=== PATIENT | male | born 1935 | race Hispanic/Latino ===

== ENCOUNTER 2016-05-27 08:37 | Outpatient (CLI) | payer MEDICARE, OTHER ==
[2016-05-27 09:23] LABS: Blood Urea Nitrogen 26 mg/dL (9-20)
[2016-05-27] MEDS ORDERED: NACL ONE (11:46)
--- NOTE | 2016-05-27 15:53 | Cat Scan Report ---
CT ABDOMEN AND PELVIS WITH CONTRAST INDICATION: Elevated alkaline phosphatase. COMPARISON: 02/05/[address] images. FINDINGS: Abdomen and pelvis CT performed following oral contrast and intravenous administration of 100 cc of Omnipaque 300. LUNG BASES: Small noncalcified peripheral bilateral lower lobe nodules again noted, approximately 8 mm on the right, axial series 2, image 29 and approximately 6 mm on the left, axial image 56. At least 2 other noncalcified left lower lobe nodules posteriorly again seen as on axial image 23, series 2 that however also now demonstrates a new, 1.2 cm spiculated density peripherally. Stable borderline cardiomegaly with possible coronary calcifications or stents and streak artifact from dual-chamber pacemaker leads. No effusions. Largest noncalcified right middle lobe nodule is 6 mm, axial image 26, series 2, also stable. Subtle lymphoid prominence of the basilio may also be incompletely imaged. Nonspecific distal esophageal wall thickening, not excluded for gastroesophageal reflux and/or hiatal hernia, amongst others. ABDOMEN: Approximately 7 mm indeterminate right hepatic hypodensity superiorly again noted, axial image 58, series 2. Otherwise unremarkable liver, spleen, gallbladder, pancreas, adrenals, nonaneurysmal abdominal aorta with atherosclerotic aortic calcifications and IVC within normal limits. Mild infrarenal aortic ectasia incidentally seen on axial image 20, series 2. Non-hydronephrotic kidneys with mild bilateral perinephric stranding and numerous bilateral renal cortical hypodensities/cysts, some subcentimeter while the largest exophytic off the right lower renal pole is approximately 8.1 x 7.3 cm on axial image 210 and while the largest partly exophytic off the left kidney inferiorly is approximately 4 cm on axial image 190. No ascites or size significant adenopathy. Opacified GI tract nonobstructive and within normal limits. Mild colonic stool. Few descending colon and proximal sigmoid diverticuli. Right lower quadrant abdominal wall laxity/mild herniation laterally with unremarkable opacified small bowel extending into it incidentally noted as on axial image 239, series 2, amongst others. PELVIS: Numerous brachytherapy seeds. Few small pelvic phleboliths. Grossly unremarkable seminal vesicles, urinary bladder and the rectosigmoid without free fluid or significant adenopathy. Possible right orchiectomy. An approximately 2.4 cm fat-containing left inguinal hernia. Demineralized bones with multilevel degenerative changes, including spurring with most advanced disease from T10-L4, including disc narrowing, vacuum phenomenon and vertebral body sclerosis at few levels as also moderate, approximately 50% T12 compression fracture, including superior and inferior endplates Schmorl's nodes. CONCLUSION: 1. Multiple noncalcified lower lung nodules again noted, though with a new small left lower lobe spiculated density, latter worrisome for neoplasm, until proven otherwise. 2. No acute abdomen or pelvic CT abnormality with various other incidental findings, including bilateral renal cysts, diverticulosis, brachytherapy seeds, multilevel spinal degenerative changes including T12 compression deformity and bilateral inguinal canal appearance, as detailed above. Please correlate. Thank you for the opportunity to participate in this patient's care.
== END 2016-05-27 08:38 | disposition home or self-care (01) ==
LOC: CT 08:37
PROVIDERS: ATTEND Internal Medicine Gastroenterology
DX: N28.1 Cyst of kidney, acquired (principal); I70.0 Atherosclerosis of aorta; K40.90 Unilateral inguinal hernia, without obstruction or gangrene, not specified as recurrent; M47.894 Other spondylosis, thoracic region; K57.30 Diverticulosis of large intestine without perforation or abscess without bleeding; I77.819 Aortic ectasia, unspecified site; R91.8 Other nonspecific abnormal finding of lung field; I87.8 Other specified disorders of veins
CPT/HCPCS: 36415; 74177; 82565; 84520; Q9967

== ENCOUNTER 2019-07-08 01:31 | Emergency (ER) | payer MEDICARE, OTHER ==
[2019-07-08 02:04] LABS: Basophils % (Auto) 0.6 % (0.0-1.8); Eosinophils # (Auto) 0.2 K/mm3 (0.0-0.4); Eosinophils % (Auto) 2.3 % (0.0-4.3); Hematocrit 37.7 % (35.5-45.6); Hemoglobin 12.4 gm/dl (11.8-15.2); Lymphocytes # (Auto) 0.6 K/mm3 (1.2-5.4); Lymphocytes % (Auto) 8.7 % (13.4-35.0); Mean Corpuscular HGB Conc 33 % (32-34); Mean Corpuscular Volume 87 fl (84-94); Monocytes # (Auto) 0.5 K/mm3 (0.0-0.8); Monocytes % (Auto) 6.8 % (0.0-7.3); Platelet Count 140 K/mm3 (140-440); Red Blood Count 4.33 M/mm3 (3.65-5.03); Red Cell Distribution Width 16.7 % (13.2-15.2)
--- NOTE | 2019-07-08 02:19 | Emergency Department Report ---
ED Male HPI - General Chief complaint: Urogenital-Male Stated complaint: BLOOD IN URINE Time Seen by Provider: 07/08/19 02:01 Source: patient Mode of arrival: Ambulatory Limitations: No Limitations - History of Present Illness Initial comments: Patient is an 84-year-old male that presents emergency room with complaints of blood in his urine. Patient states is able to pee but is having gross hematuria. Patient states that hematuria is asymptomatic. Patient denies fever and chills. Patient denies burning. Patient denies abdominal pain. Patient states he has a past medical history of prostate cancer for which he has seed implants. Patient states he denies any problems with his prostate recently. MD Complaint: other -: Sudden Severity scale (0 -10): 0 Consistency: intermittent Improves with: none Worsens with: none blood in urine. denies: discharge, swelling, mass, rash, urinary retention, dysuria, fever, nausea/vomiting, incontinence - Related Data Sexually active: No Home Medications Medication Instructions Recorded Confirmed Last Taken Atorvastatin (Nf) [Lipitor] 10 mg PO QHS 05/18/14 02/18/16 02/18/16 10 mg Furosemide [Lasix] 20 mg PO DAILY 05/18/14 02/18/16 02/18/16 20 mg Losartan [Cozaar] 100 mg PO DAILY 05/18/14 02/18/16 02/18/16 100 mg Metoprolol [Lopressor TAB] 100 mg PO BID 05/18/14 02/18/16 02/18/16 100 mg Nitroglycerin [Nitrostat] 0.4 mg SL UNK PRN 05/18/14 02/18/16 Unknown Oxybutynin Chloride [Oxybutynin 5 mg PO DAILY 05/18/14 02/18/16 02/18/16 Chloride ER] 5 mg Potassium Chloride [Klor-Con M10] 10 meq PO DAILY 05/18/14 02/18/16 02/18/16 10 meq Tamsulosin [Flomax] 0.4 mg PO DAILY 05/18/14 02/18/16 02/18/16 allopurinoL [Zyloprim] 100 mg PO DAILY 05/18/14 02/18/16 02/18/16 100 mg Eloquis 1 tab PO BID 02/18/16 02/18/16 Previous Rx's Medication Instructions Recorded Last Taken Type Digoxin [Digox] 125 mcg PO DAILY #30 tablet 05/04/14 02/18/16 Rx 125 mcg Nitrofurantoin [place]/M-Cryst 100 mg PO Q12HR #14 capsule 02/18/16 Unknown Rx [Macrobid CAP] Sulfamethoxazole/Trimethoprim 1 each PO BID 10 Days #20 tablet 07/08/19 Unknown Rx [Bactrim DS TAB] Allergies Allergy/AdvReac Type Severity Reaction Status Date / Time dabigatran etexilate mesylate Allergy Hives Verified 05/04/14 08:58 [From Pradaxa] ED Review of Systems ROS: Stated complaint: BLOOD IN URINE Other details as noted in HPI Constitutional: denies: chills, fever Eyes: denies: eye pain, eye discharge, vision change ENT: denies: ear pain, throat pain Respiratory: denies: cough, shortness of breath, wheezing Cardiovascular: denies: chest pain, palpitations Endocrine: no symptoms reported Gastrointestinal: denies: abdominal pain, nausea, diarrhea Genitourinary: hematuria. denies: urgency, dysuria Musculoskeletal: denies: back pain, joint swelling, arthralgia Skin: denies: rash, lesions Neurological: denies: headache, weakness, paresthesias Psychiatric: denies: anxiety, depression Hematological/Lymphatic: denies: easy bleeding, easy bruising ED Past Medical Hx - Past Medical History Previous Medical History?: Yes Hx Hypertension: Yes Hx Congestive Heart Failure: Yes (ER visit 05/04/14 with CHF) Hx Diabetes: No Hx Arthritis: No Additional medical history: AGENT ORANGE. ATRIAL FIB - Surgical History Past Surgical History?: Yes Hx Pacemaker: Yes Hx Internal Defibrillator: Yes Additional Surgical History: TONSILLECTOMY - Family History Family history: no significant - Social History Smoking Status: Former Smoker Substance Use Type: Alcohol - Medications Home Medications: Home Medications Medication Instructions Recorded Confirmed Last Taken Type Digoxin [Digox] 125 mcg PO DAILY #30 tablet 05/04/14 02/18/16 02/18/16 Rx 125 mcg Atorvastatin (Nf) [Lipitor] 10 mg PO QHS 05/18/14 02/18/16 02/18/16 History 10 mg Furosemide [Lasix] 20 mg PO DAILY 05/18/14 02/18/16 02/18/16 History 20 mg Losartan [Cozaar] 100 mg PO DAILY 05/18/14 02/18/16 02/18/16 History 100 mg Metoprolol [Lopressor TAB] 100 mg PO BID 05/18/14 02/18/16 02/18/16 History 100 mg Nitroglycerin [Nitrostat] 0.4 mg SL UNK PRN 05/18/14 02/18/16 Unknown History Oxybutynin Chloride [Oxybutynin 5 mg PO DAILY 05/18/14 02/18/16 02/18/16 History Chloride ER] 5 mg Potassium Chloride [Klor-Con M10] 10 meq PO DAILY 05/18/14 02/18/16 02/18/16 History 10 meq Tamsulosin [Flomax] 0.4 mg PO DAILY 05/18/14 02/18/16 02/18/16 History allopurinoL [Zyloprim] 100 mg PO DAILY 05/18/14 02/18/16 02/18/16 History 100 mg Eloquis 1 tab PO BID 02/18/16 02/18/16 History Nitrofurantoin [place]/M-Cryst 100 mg PO Q12HR #14 capsule 02/18/16 Unknown Rx [Macrobid CAP] Sulfamethoxazole/Trimethoprim 1 each PO BID 10 Days #20 tablet 07/08/19 Unknown Rx [Bactrim DS TAB] ED Physical Exam - General Limitations: No Limitations General appearance: alert, in no apparent distress - Head Head exam: Present: atraumatic, normocephalic - Eye Eye exam: Present: normal appearance - ENT ENT exam: Present: mucous membranes moist - Neck Neck exam: Present: normal inspection - Respiratory Respiratory exam: Present: normal lung sounds bilaterally. Absent: respiratory distress, wheezes, rales - Cardiovascular Cardiovascular Exam: Present: regular rate, normal rhythm. Absent: systolic murmur, diastolic murmur, rubs, gallop - GI/Abdominal GI/Abdominal exam: Present: soft, normal bowel sounds. Absent: distended, tenderness, guarding - Rectal Rectal exam: Present: deferred, normal inspection, normal rectal tone, normal prostate. Absent: prostate tenderness, prostate enlargement - Extremities Exam Extremities exam: Present: normal inspection - Back Exam Back exam: Present: normal inspection - Neurological Exam Neurological exam: Present: alert, oriented X3 - Psychiatric Psychiatric exam: Present: normal affect, normal mood - Skin Skin exam: Present: warm, dry, intact, normal color. Absent: rash ED Course Vital Signs 07/08/19 07/08/19 01:39 04:52 Temperature 98.3 F Pulse Rate 107 H 79 Respiratory 20 16 Rate Blood Pressure 130/66 Blood Pressure 133/89 [Left] O2 Sat by Pulse 97 97 Oximetry - Reevaluation(s) Reevaluation #1: Patient will receive IV antibiotics and IV fluids. I discussed all results and clinical findings with patient. I discussed plan of care with patient. Patient agrees with plan of care. Patient is stable for discharge. Patient will be discharged home. Patient given discharge instr uctions. Patient voiced understanding of discharge instructions. 07/08/19 04:31 ED Medical Decision Making - Lab Data Result diagrams: 07/08/19 01:53 07/08/19 01:53 - Radiology Data Radiology results: report reviewed CT of the abdomen and pelvis without contrast INDICATION: Hematuria COMPARISON: 05/27/2016 FINDINGS: Cardiomegaly is seen with evidence of aortic valve replacement. Pacemaker leads are in place. Basilar lung nodules are unchanged. The liver, spleen, pancreas and adrenal glands are all grossly normal. There is extensive vascular calcification. Bilateral renal cysts are seen without stones or obstruction. Gallstones are seen without cholecystitis. No biliary tree dilation. No fluid or adenopathy in the upper abdomen. Appendix is seen and is normal. CT of the pelvis shows brachytherapy seeds in the prostate. There is no pelvic or inguinal adenopathy. No diverticulitis or bowel obstruction. No pelvic fluid. No significant skeletal lesion. No gross bladder abnormality. IMPRESSION: Renal cysts with other incidental findings as described. No kidney stones or inflammatory process seen. - Medical Decision Making Patient is an 84-year-old male that presents emergency room for gross hematuria. Patient found to have a UTI. Patient given antibiotics and fluids. Patient had labs done and shows dehydration and elevated LFTs. Patient instructed to follow-up with GI. Patient also will need to follow-up with his urologist. Patient discharged with antibiotics. Patient stable for discharge. - Differential Diagnosis hematuria. uti. prostatitis. renal stone Critical care attestation.: If time is entered above; I have spent that time in minutes in the direct care of this critically ill patient, excluding procedure time. ED Disposition Clinical Impression: Dehydration, Abnormal LFTs (liver function tests), Renal insufficiency UTI (urinary tract infection) Qualifiers: Urinary tract infection type: acute cystitis Hematuria presence: with hematuria Qualified Code(s): N30.01 - Acute cystitis with hematuria Hematuria Qualifiers: Hematuria type: gross Qualified Code(s): R31.0 - Gross hematuria Disposition: TO HOME OR SELFCARE Is pt being admited?: No Does the pt Need Aspirin: No Condition: Stable Instructions: Urinary Tract Infection in Men (ED), Acute Hematuria (ED) Additional Instructions: Patient to follow-up with primary care in 2 to 3 days. Patient to follow-up with buffer operator and urologist in 2 to 3 days. Patient to rest. Patient to increase water. Patient to take meds as directed. Patient to return to the ER if condition worsens, changes or new symptoms arise. Patient to avoid alcohol and Tylenol use. Prescriptions: Sulfamethoxazole/Trimethoprim [Bactrim DS TAB] 1 each PO BID 10 Days #20 tablet Referrals: DEACON ISIDRO MD [Staff Physician] - 2-3 Days JOSEFINA STOVALL MD [Staff Physician] - 2-3 Days Time of Disposition: 04:33
[2019-07-08 02:27] LABS: Albumin 4.2 g/dL (3.9-5); Calcium 9.3 mg/dL (8.4-10.2)
[2019-07-08 02:35] LABS: Bilirubin,Urine SM (Negative); Blood,Urine LG (Negative); Color,Urine Red (Yellow); RBC,Urine > 182.0 /HPF (0.0-6.0); WBC,Urine > 182.0 /HPF (0.0-6.0)
[2019-07-08 02:57] LABS: Ictotest,Urine Positive (Negative)
--- NOTE | 2019-07-08 03:19 | Cat Scan Report ---
CT of the abdomen and pelvis without contrast INDICATION: Hematuria COMPARISON: 05/27/2016 FINDINGS: Cardiomegaly is seen with evidence of aortic valve replacement. Pacemaker leads are in plac e. Basilar lung nodules are unchanged. The liver, spleen, pancreas and adrenal glands are all grossly normal. There is extensive vascular calcification. Bilateral renal cysts are seen without stones or obstruction. Gallstones are seen without cholecystitis. No biliary tree dilation. No fluid or adenopa thy in the upper abdomen. Appendix is seen and is normal. CT of the pelvis shows brachytherapy seeds in the prostate. There is no pelvic or inguinal adenopathy . No diverticulitis or bowel obstruction. No pelvic fluid. No significant skeletal lesion. No gross b ladder abnormality. IMPRESSION: Renal cysts with other incidental findings as described. No kidney stones or inflammatory process seen. Automated exposure control was utilized to diminish radiation dose. Signer Name: Jorge Underwood MD Signed: 07/08/2019 3:14 AM Workstation Name: [id number]
[2019-07-08] MEDS ORDERED: SODIUM CHLORIDE 0.9% 500 ML 500 ML IV ONE (04:17)
[2019-07-08] MEDS ORDERED: CEFEPIME/NS 2 GM/100 ML 2 GM/100 ML BAG IV ONE (04:17)
[2019-07-08 04:52] VITALS: BP 133/89
== END 2019-07-08 05:25 | disposition home or self-care (01) ==
LOC: ED 01:31
DX: E86.0 Dehydration (principal); N28.9 Disorder of kidney and ureter, unspecified; R94.5 Abnormal results of liver function studies; R31.9 Hematuria, unspecified; N39.0 Urinary tract infection, site not specified; I11.0 Hypertensive heart disease with heart failure; I50.9 Heart failure, unspecified; I48.91 Unspecified atrial fibrillation; Z98.890 Other specified postprocedural states; Z90.89 Acquired absence of other organs; Z88.8 Allergy status to other drugs, medicaments and biological substances; Z79.899 Other long term (current) drug therapy
CPT/HCPCS: 36415; 74176; 80053; 81001; 85025; 96365; 99284; J0692; J7040

== ENCOUNTER 2020-06-01 15:45 | Emergency (ER) | payer MEDICARE, OTHER ==
--- NOTE | 2020-06-01 22:15 | Event Note ---
ED Screening Note Date of service: 06/01/20 Time: 22:14 ED Screening Note: This initial assessment/diagnostic orders/clinical plan/treatment(s) is/are subject to change based on patients health status, clinical progression and re- assessment by fellow clinical providers in the ED. Further treatment and workup at subsequent clinical providers discretion. Patient/guardian urged not to elope from the ED as their condition may be serious if not clinically assessed and managed. Initial orders include: 85-year-old male states that on Wednesday he started having blood in his urine denied any pain. He was seen by Olu rojas urologist on . And a CT of his bladder is scheduled for 06/13/2019. Today patient stated that the bleeding worsened he began started passing clots which was concerning and he came to the ER for evaluation. He continues to deny pain with urination abdominal pain he denies any chest pain or shortness of breath no URI symptoms. It is noted that patient is on Eliquis. He also admits to having blood in his urine 2 years ago
[2020-06-01 22:46] LABS: Hematocrit 35.4 % (35.5-45.6); Mean Corpuscular HGB Conc 34 % (32-34); Mean Corpuscular Volume 91 fl (84-94); Platelet Count 166 K/mm3 (140-440); Red Cell Distribution Width 14.9 % (13.2-15.2)
[2020-06-01 22:53] LABS: Bacteria,Urine 1+ /HPF (Negative); Bilirubin,Urine NEG (Negative); Blood,Urine LG (Negative); Color,Urine Red (Yellow); Mucus,Urine FEW /HPF; Urobilinogen,Urine < 2.0 mg/dL (<2.0)
[2020-06-01 22:56] LABS: INR 1.12 (0.87-1.13)
[2020-06-01 23:10] LABS: Alanine Aminotransferase 17 units/L (7-56); Albumin 4.4 g/dL (3.9-5); BUN/Creatinine Ratio 23; Blood Urea Nitrogen 25 mg/dL (9-20); Calcium 9.3 mg/dL (8.4-10.2); Hemolysis Index 3
--- NOTE | 2020-06-02 00:21 | Emergency Department Report ---
ED Male HPI - General Chief complaint: Urogenital-Male Stated complaint: BLOOD IN URINE Time Seen by Provider: 06/02/20 00:06 Source: patient Mode of arrival: Ambulatory Limitations: No Limitations - History of Present Illness Initial comments: 85-year-old male presents to ED with hematuria. Patient states he noticed some blood in his urine off and on throughout the week. He had an appointment with his urologist, Dr. Qureshi, 2 days ago. States a bladder scan was done at the time and a CT is scheduled for June 13. Patient states no prescriptions were given at that time. Earlier today patient reports he noticed blood in his urine again with clots so he decided to come to the ER. Patient states the last time that he went to the bathroom, the amount of blood in his urine had improved and he did not see any clots. Patient denies any fever, abdominal pain. He denies any difficulty urinating. MD Complaint: other -: week(s) (1) Severity: mild Quality: other (Painless) Consistency: intermittent Improves with: none Worsens with: none denies: urinary retention, fever - Related Data Home Medications Medication Instructions Recorded Confirmed Last Taken Atorvastatin (Nf) [Lipitor] 10 mg PO QHS 05/18/14 02/18/16 02/18/16 10 mg Furosemide [Lasix] 20 mg PO DAILY 05/18/14 02/18/16 02/18/16 20 mg Losartan [Cozaar] 100 mg PO DAILY 05/18/14 02/18/16 02/18/16 100 mg Metoprolol [Lopressor TAB] 100 mg PO BID 05/18/14 02/18/16 02/18/16 100 mg Nitroglycerin [Nitrostat] 0.4 mg SL UNK PRN 05/18/14 02/18/16 Unknown Oxybutynin Chloride [Oxybutynin 5 mg PO DAILY 05/18/14 02/18/16 02/18/16 Chloride ER] 5 mg Potassium Chloride [Klor-Con M10] 10 meq PO DAILY 05/18/14 02/18/16 02/18/16 10 meq Tamsulosin [Flomax] 0.4 mg PO DAILY 05/18/14 02/18/16 02/18/16 allopurinoL [Zyloprim] 100 mg PO DAILY 05/18/14 02/18/16 02/18/16 100 mg Eloquis 1 tab PO BID 02/18/16 02/18/16 Previous Rx's Medication Instructions Recorded Last Taken Type Digoxin [Digox] 125 mcg PO DAILY #30 tablet 05/04/14 02/18/16 Rx 125 mcg Nitrofurantoin [place]/M-Cryst 100 mg PO Q12HR #14 capsule 02/18/16 Unknown Rx [Macrobid CAP] Sulfamethoxazole/Trimethoprim 1 each PO BID 10 Days #20 tablet 07/08/19 Unknown Rx [Bactrim DS TAB] Allergies Allergy/AdvReac Type Severity Reaction Status Date / Time dabigatran etexilate mesylate Allergy Hives Verified 05/04/14 08:58 [From Pradaxa] ED Review of Systems ROS: Stated complaint: BLOOD IN URINE Other details as noted in HPI Comment: All other systems reviewed and negative Constitutional: denies: chills, fever Gastrointestinal: denies: abdominal pain Genitourinary: hematuria. denies: dysuria ED Past Medical Hx - Past Medical History Previous Medical History?: Yes Hx Hypertension: Yes Hx Congestive Heart Failure: Yes (ER visit 05/04/14 with CHF) Hx Diabetes: No Hx Arthritis: No Additional medical history: AGENT ORANGE. ATRIAL FIB - Surgical History Past Surgical History?: Yes Hx Pacemaker: Yes Hx Internal Defibrillator: Yes Additional Surgical History: TONSILLECTOMY - Social History Smoking Status: Former Smoker Substance Use Type: None - Medications Home Medications: Home Medications Medication Instructions Recorded Confirmed Last Taken Type Digoxin [Digox] 125 mcg PO DAILY #30 tablet 05/04/14 02/18/16 02/18/16 Rx 125 mcg Atorvastatin (Nf) [Lipitor] 10 mg PO QHS 05/18/14 02/18/16 02/18/16 History 10 mg Furosemide [Lasix] 20 mg PO DAILY 05/18/14 02/18/16 02/18/16 History 20 mg Losartan [Cozaar] 100 mg PO DAILY 05/18/14 02/18/16 02/18/16 History 100 mg Metoprolol [Lopressor TAB] 100 mg PO BID 05/18/14 02/18/16 02/18/16 History 100 mg Nitroglycerin [Nitrostat] 0.4 mg SL UNK PRN 05/18/14 02/18/16 Unknown History Oxybutynin Chloride [Oxybutynin 5 mg PO DAILY 05/18/14 02/18/16 02/18/16 History Chloride ER] 5 mg Potassium Chloride [Klor-Con M10] 10 meq PO DAILY 05/18/14 02/18/16 02/18/16 History 10 meq Tamsulosin [Flomax] 0.4 mg PO DAILY 05/18/14 02/18/16 02/18/16 History allopurinoL [Zyloprim] 100 mg PO DAILY 05/18/14 02/18/16 02/18/16 History 100 mg Eloquis 1 tab PO BID 02/18/16 02/18/16 History Nitrofurantoin [place]/M-Cryst 100 mg PO Q12HR #14 capsule 02/18/16 Unknown Rx [Macrobid CAP] Sulfamethoxazole/Trimethoprim 1 each PO BID 10 Days #20 tablet 07/08/19 Unknown Rx [Bactrim DS TAB] ED Physical Exam - General Limitations: No Limitations General appearance: alert, in no apparent distress - Head Head exam: Present: atraumatic, normocephalic - Eye Eye exam: Present: normal appearance, EOMI - ENT ENT exam: Present: mucous membranes moist - Neck Neck exam: Present: normal inspection - Respiratory Respiratory exam: Present: normal lung sounds bilaterally. Absent: respiratory distress - Cardiovascular Cardiovascular Exam: Present: regular rate, normal rhythm - GI/Abdominal GI/Abdominal exam: Present: soft. Absent: distended, tenderness - Extremities Exam Extremities exam: Present: normal inspection - Neurological Exam Neurological exam: Present: alert, oriented X3 - Psychiatric Psychiatric exam: Present: normal affect, normal mood - Skin Skin exam: Present: warm, dry, intact, normal color ED Course Vital Signs 06/01/20 06/02/20 15:50 00:55 Temperature 97.7 F 97.8 F Pulse Rate 79 70 Respiratory 16 18 Rate Blood Pressure 128/79 Blood Pressure 152/81 [Left] O2 Sat by Pulse 99 100 Oximetry ED Medical Decision Making - Lab Data Result diagrams: 06/01/20 22:29 06/01/20 22:29 - Medical Decision Making 85-year-old male presents to ED with hematuria. Hemoglobin is normal, vital signs are stable. UA shows hematuria, no significant infection. Patient advised to follow-up with his urologist, return precautions given. Will discharge at this time. - Differential Diagnosis Malignancy, UTI Critical care attestation.: If time is entered above; I have spent that time in minutes in the direct care of this critically ill patient, excluding procedure time. ED Disposition Clinical Impression: Hematuria Disposition: DC-01 TO HOME OR SELFCARE Is pt being admited?: No Condition: Stable Instructions: Hematuria, Adult Referrals: PRIMARY CARE, [Primary Care Provider] - 3-5 Days Time of Disposition: 00:21
[2020-06-02 00:57] VITALS: BP 152/81
== END 2020-06-02 00:57 | disposition home or self-care (01) ==
LOC: ED 15:45
DX: R31.9 Hematuria, unspecified (principal); I50.9 Heart failure, unspecified; I11.0 Hypertensive heart disease with heart failure; Z90.89 Acquired absence of other organs; Z87.891 Personal history of nicotine dependence; Z79.899 Other long term (current) drug therapy; Z88.8 Allergy status to other drugs, medicaments and biological substances
CPT/HCPCS: 36415; 80053; 81001; 85027; 85610